=== PATIENT | male | born 1960 | race Two or more races ===

== ENCOUNTER 2024-03-24 12:15 | Inpatient (IN) | payer OTHER ==
[~2024-03-24] VITALS: Ht 175.3 cm; Wt 88.5 kg
[2024-03-24] MEDS ORDERED: COZAAR50 MG PO (12:57)
[2024-03-24] MEDS ORDERED: ROSUVASTATIN CA10 MG PO (12:57)
[2024-03-24] MEDS ORDERED: PROBIOTIC250 MG PO (12:58)
[2024-03-24] MEDS ORDERED: OMEGA-31000 MG PO (12:58)
[2024-03-30] MEDS ORDERED: BUPIVACAINE HCL 30 ML VIAL IJ ONE (09:00)
[2024-03-30] MEDS ORDERED: METRONIDAZOLE/SODIUM CHLORIDE 500 MG/100 ML PIGGYBACK IV ONE (09:00)
[2024-03-30] MEDS ORDERED: LIDOCAINE HCL 2% 20ML VIAL IJ ONE (09:00)
[2024-03-30] MEDS ORDERED: CEFTRIAXONE SODIUM 2,000 MG VIAL IV ONE (09:00)
[2024-03-30] MEDS ORDERED: RINGERS SOLUTION,LACTATED 1,000 ML IV SCH (09:45)
[2024-03-30] MEDS ORDERED: MORPHINE SULFATE 4 MG/ML CARTRIDGE IV PRN (09:45)
[2024-03-30] MEDS ORDERED: DEXTROSE 50 % IN WATER 0.5 G/ML DISP.SYRIN IV PRN (09:45)
[2024-03-30] MEDS ORDERED: ONDANSETRON HCL 2 MG/ML VIAL IV PRN (09:45)
[2024-03-30] MEDS ORDERED: OxyCODONE HCL 5 MG TABLET (ROXICODONE) PO PRN (09:45)
[2024-03-30] MEDS ORDERED: MORPHINE SULFATE 4 MG/ML VIAL IV ONE ×2 (10:10→11:40)
[2024-03-30] MEDS ORDERED: ENALAPRILAT DIHYDRATE 1.25 MG/ML VIAL IV PRN (11:45)
[2024-03-30 13:00] VITALS: BP 140/80; O2SAT 98
[2024-03-30] MEDS ORDERED: HYOSCYAMINE SULFATE 0.125 MG TAB.SUBL SL SCH (13:00)
[2024-03-30 13:04] LABS: HEMATOCRIT 42.8 % (39.0-48.0); HEMOGLOBIN 14.8 g/dL (13-16.00); MEAN CELL VOLUME 94.1 fL (80.0-100.00); MEAN CORPUSCULAR HEMOGLOBIN 32.6 pg (27.00-32.0); MEAN CORPUSCULAR HGB CONC 34.6 g/dl (32.0-36.0); PLATELET COUNT 196 K/uL (150-450); RED BLOOD COUNT 4.55 M/uL (4.00-6.00); RED CELL DISTRIBUTION WIDTH 14.4 % (11.5-14.5)
[2024-03-30] MEDS ORDERED: ACETAMINOPHEN 500 MG GEL..CAP PO SCH (14:00)
[2024-03-30 14:14] LABS: ALBUMIN 3.8 gm/dL (3.4-5.0); CALCIUM 9.2 mg/dL (8.5-10.1); CREATININE SERUM 1.16 mg/dL (0.70-1.30); GFR 64.01; PHOSPHOROUS 4.4 mg/dL (2.5-4.9); POTASSIUM 4.61 mEq/L (3.5-5.1)
[2024-03-30 16:27] VITALS: BP 158/87; O2SAT 95
[2024-03-30] MEDS ORDERED: POLYETHYLENE GLYCOL 3350 17 GM BLIST.PACK PO SCH (17:00)
[2024-03-30] MEDS ORDERED: GABAPENTIN 300 MG CAPSULE PO SCH (17:00)
[2024-03-30] MEDS ORDERED: FAMOTIDINE/PF 20 MG/2 ML VIAL IV PUSH SCH (21:00)
[2024-03-31 00:37] VITALS: BP 136/86; O2SAT 98
[2024-03-31 07:07] LABS: HEMATOCRIT 39.6 % (39.0-48.0); HEMOGLOBIN 13.7 g/dL (13-16.00); MEAN CELL VOLUME 93.9 fL (80.0-100.00); MEAN CORPUSCULAR HEMOGLOBIN 32.5 pg (27.00-32.0); MEAN CORPUSCULAR HGB CONC 34.6 g/dl (32.0-36.0); RED BLOOD COUNT 4.22 M/uL (4.00-6.00); RED CELL DISTRIBUTION WIDTH 14.2 % (11.5-14.5)
[2024-03-31 07:41] LABS: ALBUMIN 3.3 gm/dL (3.4-5.0); CALCIUM 8.7 mg/dL (8.5-10.1); CREATININE SERUM 0.82 mg/dL (0.70-1.30); GFR 95.51; MAGNESIUM 1.9 mg/dL (1.8-2.4); PHOSPHOROUS 2.3 mg/dL (2.5-4.9); POTASSIUM 4.2 mEq/L (3.5-5.1)
[2024-03-31 07:44] LABS: PLATELET COUNT 159 K/uL (150-450)
[2024-03-31 08:55] VITALS: BP 158/96; O2SAT 96
[2024-03-31] MEDS ORDERED: LOSARTAN POTASSIUM 50 MG TABLET PO SCH (09:00)
[2024-03-31] MEDS ORDERED: POTASSIUM PHOS,M-BASIC-D-BASIC 3 MM/ML VIAL IV NR (10:00)
[2024-03-31] MEDS ORDERED: ALPRAzolam 0.5 MG TABLET PO PRN (11:15)
[2024-03-31] MEDS ORDERED: PATIENTS OWN MEDICATION (MEDICAMENTO EN PISO) PO SCH (17:00)
[2024-03-31] MEDS ORDERED: ENOXAPARIN SODIUM 40 MG/0.4 ML SYRINGE SUBCUTANEO SCH (17:00)
[2024-03-31 17:39] VITALS: BP 139/82; O2SAT 100
[2024-04-01 00:10] VITALS: BP 130/75; O2SAT 98
[2024-04-01 07:17] LABS: HEMATOCRIT 39.4 % (39.0-48.0); HEMOGLOBIN 13.6 g/dL (13-16.00); MEAN CELL VOLUME 94.4 fL (80.0-100.00); MEAN CORPUSCULAR HEMOGLOBIN 32.6 pg (27.00-32.0); MEAN CORPUSCULAR HGB CONC 34.5 g/dl (32.0-36.0); PLATELET COUNT 168 K/uL (150-450); RED BLOOD COUNT 4.17 M/uL (4.00-6.00); RED CELL DISTRIBUTION WIDTH 13.6 % (11.5-14.5)
[2024-04-01 08:05] LABS: CALCIUM 8.7 mg/dL (8.5-10.1); CREATININE SERUM 0.81 mg/dL (0.70-1.30); GFR 96.88; MAGNESIUM 1.8 mg/dL (1.8-2.4); POTASSIUM 4.07 mEq/L (3.5-5.1)
[2024-04-01 08:32] VITALS: BP 130/88; O2SAT 94
[2024-04-01 08:40] LABS: PHOSPHOROUS 1.7 mg/dL (2.5-4.9)
[2024-04-01] MEDS ORDERED: ENOXAPARIN SODIUM 40 MG/0.4 ML SYRINGE SUBCUTANEO SCH (09:00)
[2024-04-01] MEDS ORDERED: POTASSIUM PHOS,M-BASIC-D-BASIC 3 MM/ML VIAL IV NR (10:15)
[2024-04-01 16:01] VITALS: BP 137/85; O2SAT 94
[2024-04-01 16:02] VITALS: BP 143/74; O2SAT 95
[2024-04-01 16:03] VITALS: BP 137/86; O2SAT 94
[2024-04-02] VITALS: BP 134/87; O2SAT 96
[2024-04-02 08:40] VITALS: BP 150/88; O2SAT 98
[2024-04-02] MEDS ORDERED: NEURONTIN300 MG PO (10:50)
[2024-04-02] MEDS ORDERED: ACETAMINOPHEN500 M2 PO (10:50)
== END 2024-04-02 13:40 | disposition home or self-care (01) | DRG 331 ==
LOC: SURG 03-30 04:30 → O/R 03-30 04:30 → SURG 03-30 07:00
PROVIDERS: Internal Medicine Geriatric Medicine; ADMIT Surgery; ATTEND Surgery
PROC: 0DBP4ZZ Excision of Rectum, Percutaneous Endoscopic Approach (ICD-10-PCS; 2024-03-30)
PROC: 0DBM4ZZ Excision of Descending Colon, Percutaneous Endoscopic Approach (ICD-10-PCS; 2024-03-30)
PROC: 0DJD8ZZ Inspection of Lower Intestinal Tract, Via Natural or Artificial Opening Endoscopic (ICD-10-PCS; 2024-03-30)
PROC: 0DTN4ZZ Resection of Sigmoid Colon, Percutaneous Endoscopic Approach (ICD-10-PCS; principal; 2024-03-30 07:00)
DX: K57.20 Diverticulitis of large intestine with perforation and abscess without bleeding (principal); K59.09 Other constipation; I10 Essential (primary) hypertension; E83.39 Other disorders of phosphorus metabolism; F41.0 Panic disorder [episodic paroxysmal anxiety]; F17.200 Nicotine dependence, unspecified, uncomplicated